=== PATIENT | female | born 1945 | race Two or more races ===

== ENCOUNTER 2018-09-28 13:39 | Inpatient (IN) | payer MEDICARE ==
[~2018-09-28] VITALS: Ht 162.6 cm; Wt 72.6 kg
[2018-09-28] MEDS ORDERED: ONDANSETRON 4 MG/2 ML VIAL IV PRN (15:15)
[2018-09-28] MEDS ORDERED: MAGNESIUM HYDROXIDE 30 ML LIQUID UDC PO PRN (15:15)
[2018-09-28] MEDS ORDERED: Z GUARD REMEDY PASTE 57 GM TUBE TOP PRN (15:15)
[2018-09-28] MEDS ORDERED: ACETAMINOPHEN 325 MG TABLET PO PRN (15:15)
[2018-09-28] MEDS ORDERED: ENOX40DI SQ (15:25)
[2018-09-28] MEDS ORDERED: MAGN400O6 PO (15:25)
[2018-09-28] MEDS ORDERED: HYDR-3326 PO ×2 (15:25)
[2018-09-28] MEDS ORDERED: PANT40TA4 PO (15:25)
[2018-09-28] MEDS ORDERED: INSU100V28 (15:25)
[2018-09-28] MEDS ORDERED: MAG355OR18 PO (15:25)
[2018-09-28] MEDS ORDERED: DEXTROSE 50% 50 ML DISP.SYRIN IV PRN (15:30)
[2018-09-28] MEDS: BLOOD SUGAR DIAGNOSTIC 1 EACH STRIP VI SCH ×2 (17:18→20:44)
--- NOTE | 2018-09-28 17:25 | NUR ---
S/P new admit from [facility] via ambulance in stretcher with 2 EMT. Alert and oriented x4 romanian speaking with little kiswahili, in stable condition. DX: Left knee ORIF, S/P left kne fracture due to fall. slight redness in dried healed scratch on the right shoulder, right arm slight weakness, negative result of fracture in x-ray. On CCHO diet, with HX of DM, hyperglycemia. MD Wheeler and MAXIM العراقي made aware. with pain management. For PT/OT/ST evaluation. not in distress. will continue monitor Addendum: 09/28/18 at 1804 by MANOLO ZUÑIGA RN RN Patient came to unit around 1445
[2018-09-28] MEDS: INSULIN REGULAR, HUMAN 300 UNIT/3 ML VIAL SQ PRN ×2 (18:42→20:47)
[2018-09-28] MEDS: HYDROCODONE/APAP 5-325MG TABLET PO PRN (19:17)
[2018-09-28 19:50] VITALS: BP 137/56
[2018-09-28] MEDS: DOCUSATE SODIUM 100 MG CAPSULE PO SCH (20:43)
--- NOTE | 2018-09-28 22:42 | NUR ---
Received pt resting in bed. AAO x3, Mosotho speaking and able to make needs known. Family at bedside. No acute distress noted. No c/o pain or discomfort. All due meds and insulin coverage given as ordered. Pt had chavez catheter removed today from [facility], pt voided x1, will continue monitoring for s/s of retention. Knee immobilizer in place. Safety measures maintained. Call light and personal belongings within reach. Will continue to monitor.
[2018-09-29 04:45] VITALS: BP 139/66
[2018-09-29] MEDS: HYDROCODONE/APAP 5-325MG TABLET PO PRN ×2 (05:52→17:09)
[2018-09-29] MEDS: PANTOPRAZOLE SODIUM 40 MG TABLET.DR PO SCH (06:00)
[2018-09-29] MEDS: BLOOD SUGAR DIAGNOSTIC 1 EACH STRIP VI SCH ×4 (06:31→20:57)
[2018-09-29 07:00] VITALS: BP 124/54
[2018-09-29 07:28] LABS: BASOPHILS % (AUTO) 0.6 % (0.0-2.0); EOSINOPHILS # (AUTO) 0.2 K/uL (0.0-0.7); EOSINOPHILS % (AUTO) 3.1 % (0.0-7.0); HEMOGLOBIN 10.5 g/dL (10.9-14.3); LYMPHOCYTES # (AUTO) 1.2 K/uL (20.0-40.0); LYMPHOCYTES % (AUTO) 17.4 % (20.5-51.5); MEAN CORPUSCULAR HEMOGLOBIN 29.3 uug (24.7-32.8); MEAN CORPUSCULAR HGB CONC 35 g/dL (32.3-35.6); MEAN CORPUSCULAR VOLUME 83.6 fL (75.5-95.3); MONOCYTES # (AUTO) 0.6 K/uL (2.0-10.0); MONOCYTES % (AUTO) 8.2 % (0.0-11.0); NEUTROPHILS # (AUTO) 4.8 K/uL (1.8-8.9); NEUTROPHILS % (AUTO) 70.7 % (38.5-71.5); PLATELET COUNT (AUTO) 197 K/uL (179-408); RED BLOOD CELL COUNT(AUTO) 3.59 MIL/uL (3.63-4.92); WHITE BLOOD COUNT (AUTO) 6.8 K/uL (3.8-11.8)
[2018-09-29] MEDS: INSULIN REGULAR, HUMAN 300 UNIT/3 ML VIAL SQ PRN ×4 (08:12→21:00)
[2018-09-29] MEDS ORDERED: HYDROCODONE/APAP 5-325MG TABLET PO SCH (09:00)
[2018-09-29] MEDS ORDERED: PANTOPRAZOLE SODIUM 40 MG TABLET.DR PO SCH (09:00)
--- NOTE | 2018-09-29 09:00 | NUR ---
Received patient, awake, alert x4. Not in any form of distress. With tolerable pain levels over left leg, refused pain medications for now. Immobilizer in place. Informed patient to maintain non-weight bearing on left lower extremity.
[2018-09-29] MEDS: ENOXAPARIN SODIUM 40 MG/0.4 ML DISP.SYRIN SQ SCH (09:38)
--- NOTE | 2018-09-29 10:26 | NUR ---
Patient showered with moderate assistance. Kept knee immobilizer in place, kept immobilizer dry and intact at all times. With tolerable pain levels. Kept on non-weight bearing status.
[2018-09-29] MEDS ORDERED: DEXTROSE 50% 50 ML DISP.SYRIN IV PRN (12:30)
[2018-09-29 16:04] VITALS: BP 148/63
[2018-09-29 20:29] VITALS: BP 134/50
[2018-09-29] MEDS: DOCUSATE SODIUM 100 MG CAPSULE PO SCH (20:54)
--- NOTE | 2018-09-29 22:01 | NUR ---
resting in bed. aaox 4 needs attended. patient had surgery on (09/26) S/P ORIF of the Left Tibia by Dr Montano. LLE dressing clean and dry.LLE with leg immobilizer intact. On pain management, denies any pain at this time. Will monitor patient. NWB LLE. Kept comfortable. Voiding well. Fall precautions maintained. Siderails up for safety.Call sal within reach.
[2018-09-30 05:20] VITALS: BP 150/64
--- NOTE | 2018-09-30 05:47 | NUR ---
slept well most of the shift. aaox4 no acute distress noted. needs attended. LLE immobilizer intact, good circulation, good pulses. denies any pain nor any discomfort. incontinent of urinex2 kept clean and dry. siderails up for safety. fall precautions maintained.
[2018-09-30] MEDS: PANTOPRAZOLE SODIUM 40 MG TABLET.DR PO SCH (06:10)
[2018-09-30] MEDS: BLOOD SUGAR DIAGNOSTIC 1 EACH STRIP VI SCH ×4 (06:33→20:26)
[2018-09-30] MEDS: INSULIN REGULAR, HUMAN 300 UNIT/3 ML VIAL SQ PRN ×4 (07:44→20:25)
[2018-09-30 08:00] VITALS: BP 145/46
[2018-09-30] MEDS: ENOXAPARIN SODIUM 40 MG/0.4 ML DISP.SYRIN SQ SCH (09:14)
[2018-09-30] MEDS: HYDROCODONE/APAP 5-325MG TABLET PO PRN (11:52)
--- NOTE | 2018-09-30 15:06 | NUR ---
Dry Transfer Man Assessment: Underwear Welter met with patient at bedside to provide support and assess for psychosocial needs. Patient is a 72 year-old female admitted to ARU s/p left knee fracture. Patient is alert and oriented x4. Patient understands some Estonian, and her , Césra, was able to translate. Patient reports she enjoys the therapy she is receiving in ARU. Patient reported that she has a strong support system with her and her daughter, Gemini. Patient expressed that she will need some more assistance when she returns home, as patient plans to return home upon discharge. Patient's mood seemed euthymic with a congruent affect. Patient seemed motivated to participate in treatment, as she asked to see the physical therapist for a second time that day. SW provided active listening and supportive counseling to the pt and her . SW collaborated with Monumental Stonemason, Ronald, and informed him of pt's wishes to return home upon discharge, likely with Home Health services. No further psychosocial needs identified at this time. SW will continue to be available to the patient throughout her stay in ARU to provide ongoing support, and will be available to provide information about caregiving resources if needed.
[2018-09-30 16:00] VITALS: BP 130/53
[2018-09-30] MEDS ORDERED: BISACODYL 10 MG SUPP.RECT RC ONE (18:15)
--- NOTE | 2018-09-30 19:45 | NUR ---
Patient received in bed, AAO x4. No acute distress or SOB was noted. Nepali speaking, but can communicate in Greenlandic. On room air. No complain of pain at this time. Safety measures maintained, Fall precaution observed, Bed in low position, brake and alarm on, side rails up x2 for safety. Continue to monitor.
[2018-09-30 19:46] VITALS: BP 145/58
[2018-09-30] MEDS: DOCUSATE SODIUM 100 MG CAPSULE PO SCH (20:22)
[2018-10-01] MEDS: HYDROCODONE/APAP 5-325MG TABLET PO PRN ×2 (04:37→20:49)
[2018-10-01 04:47] VITALS: BP 121/55
--- NOTE | 2018-10-01 05:50 | NUR ---
End of the shift report Patient was stable throughout the shift and had a good sleep last night. No sign of acute distress or SOB was noted. Complained of pain on her left leg rated 9/10. Pain medications given (Narco 5-325 mg) at 0437. V/S checked. Accucheck done, BS 200 at 2100, 3 units insulin coverage based on sliding scale. Diaper changed, keep her clean and dry. Safety measures maintained. Fall precaution observed. All needs attended promptly. Bed in low position, brake and alarm on, side rails up x2 for safety. Call light and all personal belongings within reach. Will continue to monitor and endorse to the day shift nurse accordingly.
[2018-10-01] MEDS: PANTOPRAZOLE SODIUM 40 MG TABLET.DR PO SCH (06:40)
[2018-10-01] MEDS: BLOOD SUGAR DIAGNOSTIC 1 EACH STRIP VI SCH ×4 (06:40→20:51)
[2018-10-01 07:04] LABS: BASOPHILS % (AUTO) 0.5 % (0.0-2.0); EOSINOPHILS # (AUTO) 0.2 K/uL (0.0-0.7); EOSINOPHILS % (AUTO) 3.3 % (0.0-7.0); HEMATOCRIT 30.2 % (31.2-41.9); HEMOGLOBIN 10.4 g/dL (10.9-14.3); LYMPHOCYTES # (AUTO) 1.1 K/uL (20.0-40.0); LYMPHOCYTES % (AUTO) 17.1 % (20.5-51.5); MEAN CORPUSCULAR HEMOGLOBIN 28.5 uug (24.7-32.8); MEAN CORPUSCULAR HGB CONC 34 g/dL (32.3-35.6); MEAN CORPUSCULAR VOLUME 83.1 fL (75.5-95.3); MONOCYTES # (AUTO) 0.6 K/uL (2.0-10.0); MONOCYTES % (AUTO) 8.8 % (0.0-11.0); NEUTROPHILS # (AUTO) 4.7 K/uL (1.8-8.9); NEUTROPHILS % (AUTO) 70.3 % (38.5-71.5); PLATELET COUNT (AUTO) 261 K/uL (179-408); RED BLOOD CELL COUNT(AUTO) 3.64 MIL/uL (3.63-4.92); WHITE BLOOD COUNT (AUTO) 6.7 K/uL (3.8-11.8)
[2018-10-01 07:16] LABS: ALANINE AMINOTRANSFERASE 72 U/L (14-59); ALKALINE PHOSPHATASE 125 U/L (50-136); ASPARTATE AMINOTRANSFERASE 62 U/L (15-37); CARBON DIOXIDE 30 mmol/L (21-32); CHLORIDE 104 mmol/L (98-107); CREATININE 0.6 mg/dL (0.6-1.3); GLUCOSE 147 mg/dL (74-106); POTASSIUM 3.9 mmol/L (3.5-5.1); TOTAL PROTEIN, SERUM 6.5 g/dL (6.4-8.2); UREA NITROGEN, BLOOD 17 mg/dL (7-18)
[2018-10-01 08:00] VITALS: BP 131/58
[2018-10-01] MEDS: INSULIN REGULAR, HUMAN 300 UNIT/3 ML VIAL SQ PRN ×4 (08:12→20:53)
[2018-10-01] MEDS: ENOXAPARIN SODIUM 40 MG/0.4 ML DISP.SYRIN SQ SCH (08:13)
--- NOTE | 2018-10-01 10:00 | NUR ---
Received pt in bed. A/OX4. No acute distress noted. Denies CP or SOB. All due medications given as ordered and tolerated well. On Lovenox with no s/sx of bleeding. Skin care rendered. All pt need attended and met. Kept pt. clean and dry. Safety measures maintained. Call light and all frequently used items in place. Will continue to monitor accordingly.
--- NOTE | 2018-10-01 15:26 | NUR ---
INTERDISCIPLINARY TEAM CONFERENCE
[2018-10-01 16:00] VITALS: BP 125/50
--- NOTE | 2018-10-01 18:22 | NUR ---
End of shift: All due medications administered as ordered and tolerated well. No new skin condition noted. Encouraged PO fluid intake. Skin care rendered. Kept pt. clean and dry. Participated with PT/OT and tolerated TX well. No s/sx of bleeding 2/2 use of Lovenox. Call light and all frequently used items within pt. reach. Will endorse to oncoming shift accordingly.
[2018-10-01 19:40] VITALS: BP 145/52
[2018-10-01] MEDS: DOCUSATE SODIUM 100 MG CAPSULE PO SCH (20:43)
--- NOTE | 2018-10-01 23:31 | NUR ---
Received pt resting in bed. Family at bedside. AAO x4, Welsh speaking, able to make needs known. No acute distress noted. C/o 8/10 on left leg and knee. PRN Coram given as ordered. Knee immobilizer in place. All due meds and insulin coverage given as ordered. Diaper changed. Turned and repositioned. Offloaded both heels. Safety measures maintained. Call light and personal belongings within reach. Will continue to monitor.
[2018-10-02 04:35] VITALS: BP 142/61
[2018-10-02] MEDS: BLOOD SUGAR DIAGNOSTIC 1 EACH STRIP VI SCH ×4 (06:31→20:43)
[2018-10-02] MEDS: PANTOPRAZOLE SODIUM 40 MG TABLET.DR PO SCH (06:31)
[2018-10-02] MEDS: INSULIN REGULAR, HUMAN 300 UNIT/3 ML VIAL SQ PRN ×4 (08:03→20:46)
[2018-10-02] MEDS: ENOXAPARIN SODIUM 40 MG/0.4 ML DISP.SYRIN SQ SCH (08:04)
[2018-10-02 08:19] VITALS: BP 157/50
--- NOTE | 2018-10-02 09:30 | NUR ---
Received pt in bed. A/OX4. No acute distress noted. Denies CP or SOB. All due medications given as ordered and tolerated well. On Lovenox with no s/sx of bleeding. Pt. with c/o of RT. breast pain 7-8/10 P.S aggravated when raising her RT. arm, no lumps when palpated. Heart sound regular with normal rhythm. PRN [place] 5-325 mg given and effective. MD made aware of ROBERTA, awaiting for order. Skin care rendered. All pt need attended and met. Kept pt. clean and dry. Safety measures maintained. Call light and all frequently used items in place. Will continue to monitor accordingly.
[2018-10-02] MEDS: HYDROCODONE/APAP 5-325MG TABLET PO PRN ×2 (10:10→20:48)
--- NOTE | 2018-10-02 13:00 | NUR ---
Received order CXR order from for pt. c/o RT. breast pain. Orders noted and carried out. Pt. made aware.
[2018-10-02 16:00] VITALS: BP 146/62
--- NOTE | 2018-10-02 18:18 | NUR ---
End of shift: All due medications administered as ordered and tolerated well. No new skin condition noted. Encouraged PO fluid intake. Skin care rendered. Kept pt. clean and dry. Seen by Dr. All Berrios and aware of pt. complaint of RT breast pain. Relayed CXR to MD. No new order at this time, per MD continue to monitor and administer pain medications as ordered. Call light and all frequently used items within pt. reach. Will endorse to oncoming shift accordingly.
[2018-10-02 19:45] VITALS: BP 144/53
[2018-10-02] MEDS: ATORVASTATIN 10 MG TABLET PO SCH (20:44)
[2018-10-02] MEDS: DOCUSATE SODIUM 100 MG CAPSULE PO SCH (20:44)
--- NOTE | 2018-10-02 21:00 | NUR ---
Received pt resting in bed. AAO x4. Uruguayan speaking, able to make needs known. Family at bedside. No acute distress noted. C/o 8/10 pain on right upper breast and left knee. Jefferson PRN given. All due meds and insulin coverage given as ordered. Knee immobilizer in place. Safety measures maintained. Call light and personal belongings within reach. Will continue to monitor.
[2018-10-03 04:50] VITALS: BP 144/51
[2018-10-03] MEDS: PANTOPRAZOLE SODIUM 40 MG TABLET.DR PO SCH (06:26)
[2018-10-03] MEDS: BLOOD SUGAR DIAGNOSTIC 1 EACH STRIP VI SCH ×4 (06:33→20:49)
--- NOTE | 2018-10-03 06:46 | NUR ---
No stool sample collected this shift. No BM. Will endorse accordingly to oncoming shift.
[2018-10-03] MEDS: GLIMEPIRIDE 2 MG TABLET PO SCH (08:12)
[2018-10-03] MEDS: INSULIN REGULAR, HUMAN 300 UNIT/3 ML VIAL SQ PRN ×3 (08:19→20:52)
--- NOTE | 2018-10-03 12:25 | NUR ---
SBAR report received, Pt assessed. NAD. No SOB, dull pain described to upper right deltoid/shoulder, therapist reports slight arm extension reduction observed. MD notified, continue to monitor at this time. Ice pack applied. Pt complaint with all routine morning medication administration, including insulin coverage. BS 142 prior to lunch. Insulin coverage of 2 units double checked by both nurses, issue scanning insulin addressed by Pharmacist, permission to administer per safety protocol of Pt confirmed. Pharmacist will continue to investigate issue. Will document accordingly when able. VSS. Left knee immobilizer in place. Pt assisted to transfer to bedside commode safely for voiding and returned. Pt Bed in locked and lowest position, linens changed. Personal items and call light placed within reach. Pt sitting up in chair for lunch. Will continue to monitor.
[2018-10-03] MEDS: HYDROCODONE/APAP 5-325MG TABLET PO PRN (15:26)
[2018-10-03 16:59] VITALS: BP 138/44
[2018-10-03] MEDS ORDERED: RIVAROXABAN 15 MG TABLET PO SCH (18:00)
[2018-10-03 19:45] VITALS: BP 132/29
--- NOTE | 2018-10-03 19:50 | NUR ---
Patient received in bed, AAO x4. No acute distress or SOB was noted. Polish speaking, but can communicate in Albanian. On room air. Family at the bedside. No complain of pain at this time. Safety measures maintained, Fall precaution observed, Bed in low position, brake and alarm on, side rails up x2 for safety. Continue to monitor.
[2018-10-03] MEDS: ATORVASTATIN 10 MG TABLET PO SCH (20:50)
[2018-10-03] MEDS: DOCUSATE SODIUM 100 MG CAPSULE PO SCH (20:50)
[2018-10-04] MEDS: HYDROCODONE/APAP 5-325MG TABLET PO PRN ×2 (03:17→08:32)
[2018-10-04 03:57] LABS: *OCCULT BLOOD STOOL NEGATIVE (NEGATIVE)
[2018-10-04] MEDS: PANTOPRAZOLE SODIUM 40 MG TABLET.DR PO SCH (06:15)
[2018-10-04 06:17] VITALS: BP 125/54
--- NOTE | 2018-10-04 06:46 | NUR ---
End of the shift report Patient was stable throughout the shift and had a good sleep last night. No sign of acute distress or SOB was noted. Complained of pain on her right shoulder rated 8/10. Pain medications given (Narco 5-325 mg) at 0337. V/S checked. Accucheck done, BS 138 at 2100, 2 units insulin coverage based on sliding scale. Accucheck DC. Diaper changed, keep her clean and dry. Stool sample collected, sent to the lab, result came back negative. Safety measures maintained. Fall precaution observed. All needs attended promptly. Bed in low position, brake and alarm on, side rails up x2 for safety. Call light and all personal belongings within reach. Will continue to monitor and endorse to the day shift nurse accordingly.
[2018-10-04 08:02] VITALS: BP 140/50
[2018-10-04] MEDS: GLIMEPIRIDE 2 MG TABLET PO SCH (08:31)
--- NOTE | 2018-10-04 13:21 | NUR ---
INTERDISCIPLINARY TEAM CONFERENCE
[2018-10-04] MEDS: IBUPROFEN 200 MG TABLET PO SCH (17:09)
[2018-10-04] MEDS: RIVAROXABAN 10 MG TABLET PO SCH (17:10)
--- NOTE | 2018-10-04 19:04 | NUR ---
Patient still complaining of right shoulder pain and difficulty moving her right hand. MD Carrizales aware ordered CT cervical and thoracic scan. notified with the result. will continue monitor
--- NOTE | 2018-10-04 19:44 | NUR ---
Patient received in bed, AAO x4. No acute distress or SOB was noted. Faroese speaking, but can communicate in Setswana. On room air. Family at the bedside. No complain of pain at this time. V/S checked. Safety measures maintained, Fall precaution observed, Bed in low position, brake and alarm on, side rails up x2 for safety. Continue to monitor.
[2018-10-04 19:45] VITALS: BP 132/51
[2018-10-04] MEDS ORDERED: Z GUARD REMEDY PASTE 57 GM TUBE TOP PRN (20:30)
[2018-10-04] MEDS: DOCUSATE SODIUM 100 MG CAPSULE PO SCH (20:54)
[2018-10-04] MEDS: ATORVASTATIN 10 MG TABLET PO SCH (20:54)
[2018-10-05 06:11] VITALS: BP 132/58
[2018-10-05] MEDS: PANTOPRAZOLE SODIUM 40 MG TABLET.DR PO SCH (06:21)
--- NOTE | 2018-10-05 06:49 | NUR ---
End of the shift report Patient was stable throughout the shift and had a good sleep last night. No sign of acute distress or SOB was noted. Complained of pain on her right shoulder when moving her shoulder. V/S checked. Diaper changed, keep her clean and dry. Stool sample collected, sent to the lab, result came back negative. Urine sample collected and sent to the lab. Safety measures maintained. Fall precaution observed. All needs attended promptly. Bed in low position, brake and alarm on, side rails up x2 for safety. Call light and all personal belongings within reach. Will continue to monitor and endorse to the day shift nurse accordingly.
[2018-10-05 07:22] LABS: *BILIRUBIN,URIN NEGATIVE (NEGATIVE); *BLOOD, URINE Trace-intact (NEGATIVE); *CLARITY,URINE CLOUDY (CLEAR); *COLOR,URINE YELLOW (YELLOW); *KETONES,URINE NEGATIVE (NEGATIVE); *UROBILINOGEN,URINE 0.2 E.U./dl (NORMAL); LEUKOCYTE ESTERASE ,URINE 2+ (NEGATIVE); NITRITE, URINE NEGATIVE (NEGATIVE); PH,URINE 5.5 (5.0-8.0); UGLUCOSE NEGATIVE (NEGATIVE)
[2018-10-05 07:33] LABS: BACTERIA,URINE MANY /HPF (NONE SEEN); RBC,URINE 0-3 /HPF (0-3); SQUAMOUS EPITHELIAL CELL,UR FEW /HPF (NONE SEEN); WBC,URINE 50-80 /HPF (0-3)
[2018-10-05] MEDS: IBUPROFEN 200 MG TABLET PO SCH ×3 (08:32→16:45)
[2018-10-05] MEDS: GLIMEPIRIDE 2 MG TABLET PO SCH (08:32)
[2018-10-05 09:28] VITALS: BP 142/62
[2018-10-05] MEDS: CEphaleXIN 500 MG CAPSULE PO SCH ×2 (13:19→21:04)
[2018-10-05] MEDS: RIVAROXABAN 10 MG TABLET PO SCH (16:47)
[2018-10-05 19:43] VITALS: BP 127/51
[2018-10-05] MEDS: DOCUSATE SODIUM 100 MG CAPSULE PO SCH (20:10)
[2018-10-05] MEDS: ATORVASTATIN 10 MG TABLET PO SCH (20:10)
--- NOTE | 2018-10-05 20:33 | NUR ---
Received pt resting in bed. AAO x4. Venezuelan speaking, able to make needs known. Family at bedside. No acute distress noted. No c/o pain or discomfort. Knee immobilizer in place. Both heels offloaded. Turned and repositioned. Safety measures maintained. Call light and personal belongings within reach. Will continue to monitor.
[2018-10-06 04:40] VITALS: BP 134/59
[2018-10-06] MEDS: PANTOPRAZOLE SODIUM 40 MG TABLET.DR PO SCH (06:16)
[2018-10-06] MEDS: CEphaleXIN 500 MG CAPSULE PO SCH ×3 (06:16→21:09)
--- NOTE | 2018-10-06 06:45 | NUR ---
Pt slept comfortably at night. All needs attended to promptly. Knee immobilizer kept in place. Offloaded both heels. Turned and repositioned. All due meds given as ordered. Will endorse to oncoming shift. Continue to monitor.
[2018-10-06] MEDS: GLIMEPIRIDE 2 MG TABLET PO SCH (08:17)
[2018-10-06] MEDS: IBUPROFEN 200 MG TABLET PO SCH ×3 (08:17→17:08)
[2018-10-06 08:36] VITALS: BP 143/57
[2018-10-06] MEDS: HYDROCODONE/APAP 5-325MG TABLET PO PRN ×2 (11:13→20:08)
[2018-10-06 16:00] VITALS: BP 148/56
[2018-10-06] MEDS: RIVAROXABAN 10 MG TABLET PO SCH (17:09)
--- NOTE | 2018-10-06 19:11 | NUR ---
End of shift: All due medications administered as ordered and tolerated well. No new skin condition noted. Encouraged PO fluid intake. Skin care rendered. Kept pt. clean and dry. Lt. knee immobilizer in place. Call light and all frequently used items within pt. reach. Will endorse to oncoming shift accordingly.
[2018-10-06] MEDS: DOCUSATE SODIUM 100 MG CAPSULE PO SCH (20:06)
[2018-10-06] MEDS: ATORVASTATIN 10 MG TABLET PO SCH (20:07)
[2018-10-06 20:21] VITALS: BP 109/65
--- NOTE | 2018-10-06 21:02 | NUR ---
Received pt sleeping comfortably in bed. AAO x4. Togolese speaking, able to make needs known. No acute distress noted. C/o 7/10 pain on right shoulder and left knee. PRN Ralph and all due meds given as ordered. Knee immobilizer in place. Dr. Carrizales seen pt and ordered for right shoulder xray for tomorrow 10/07/18 at 0800. Safety measures maintained. Call light and personal belongings within reach. Will continue to monitor.
[2018-10-07 04:10] VITALS: BP 141/55
[2018-10-07] MEDS: CEphaleXIN 500 MG CAPSULE PO SCH ×3 (05:32→21:12)
[2018-10-07] MEDS: PANTOPRAZOLE SODIUM 40 MG TABLET.DR PO SCH (06:06)
[2018-10-07 07:30] VITALS: BP_SYST 143; BP_SYST 155; BP_DIAS 55; BP_DIAS 61
[2018-10-07] MEDS: GLIMEPIRIDE 2 MG TABLET PO SCH (08:26)
[2018-10-07] MEDS: IBUPROFEN 200 MG TABLET PO SCH ×3 (08:26→17:03)
--- NOTE | 2018-10-07 10:24 | NUR ---
Received pt in bed. A/OX4. No acute distress noted. Denies CP or SOB. RA and tolerating well. All due medications given as ordered and tolerated well. Skin care rendered. All pt need attended and met. Kept pt. clean and dry. Safety measures maintained. Call light and all frequently used items in place. Will continue to monitor accordingly.
[2018-10-07] MEDS: HYDROCODONE/APAP 5-325MG TABLET PO PRN (15:56)
[2018-10-07 17:01] VITALS: BP 133/56
[2018-10-07] MEDS: RIVAROXABAN 10 MG TABLET PO SCH (17:05)
--- NOTE | 2018-10-07 17:48 | NUR ---
End of shift: All due medications administered as ordered and tolerated well. No new skin condition noted. Encouraged PO fluid intake. Skin care rendered. Kept pt. clean and dry. Lt. knee dressing changed today per pt. request, pt. tolerated procedure well. Surgical incision noted with multiple claudia and minimal redness, no drain or swelling. LT knee immobilizer in place. Call light and all frequently used items within pt. reach. Will endorse to oncoming shift accordingly.
[2018-10-07 19:45] VITALS: BP 118/44
--- NOTE | 2018-10-07 19:45 | NUR ---
Patient received in bed, AAO x4. No acute distress or SOB was noted. Indonesian speaking, but can communicate in Maltese. On room air. Complain of pain on the right breast. V/S checked. Safety measures maintained, Fall precaution observed, Bed in low position, brake and alarm on, side rails up x2 for safety. Continue to monitor.
[2018-10-07] MEDS: ATORVASTATIN 10 MG TABLET PO SCH (21:12)
[2018-10-07] MEDS: DOCUSATE SODIUM 100 MG CAPSULE PO SCH (21:12)
[2018-10-08 04:59] VITALS: BP 145/47
[2018-10-08] MEDS: CEphaleXIN 500 MG CAPSULE PO SCH ×3 (06:09→21:03)
[2018-10-08] MEDS: PANTOPRAZOLE SODIUM 40 MG TABLET.DR PO SCH (06:09)
--- NOTE | 2018-10-08 06:56 | NUR ---
End of the shift report Patient was stable throughout the shift and had a good sleep last night. No sign of acute distress or SOB was noted. Complained of pain on her right shoulder and right breast when moving her shoulder. V/S checked. Assisted her to the bathroom as needed, Diaper changed, keep her clean and dry. Safety measures maintained. Fall precaution observed. All needs attended promptly. Bed in low position, brake and alarm on, side rails up x2 for safety. Call light and all personal belongings within reach. Will continue to monitor and endorse to the day shift nurse accordingly.
[2018-10-08] MEDS: GLIMEPIRIDE 2 MG TABLET PO SCH (08:38)
[2018-10-08] MEDS: IBUPROFEN 200 MG TABLET PO SCH ×3 (08:38→16:46)
[2018-10-08 09:04] LABS: BASOPHILS % (AUTO) 0.6 % (0.0-2.0); EOSINOPHILS # (AUTO) 0.2 K/uL (0.0-0.7); EOSINOPHILS % (AUTO) 3.7 % (0.0-7.0); HEMATOCRIT 33.2 % (31.2-41.9); HEMOGLOBIN 11.1 g/dL (10.9-14.3); LYMPHOCYTES # (AUTO) 1.1 K/uL (20.0-40.0); LYMPHOCYTES % (AUTO) 16.6 % (20.5-51.5); MEAN CORPUSCULAR HEMOGLOBIN 28.3 uug (24.7-32.8); MEAN CORPUSCULAR HGB CONC 34 g/dL (32.3-35.6); MEAN CORPUSCULAR VOLUME 84.3 fL (75.5-95.3); MONOCYTES # (AUTO) 0.4 K/uL (2.0-10.0); MONOCYTES % (AUTO) 5.8 % (0.0-11.0); NEUTROPHILS # (AUTO) 4.7 K/uL (1.8-8.9); NEUTROPHILS % (AUTO) 73.3 % (38.5-71.5); PLATELET COUNT (AUTO) 313 K/uL (179-408); RED BLOOD CELL COUNT(AUTO) 3.94 MIL/uL (3.63-4.92); WHITE BLOOD COUNT (AUTO) 6.4 K/uL (3.8-11.8)
[2018-10-08 09:17] LABS: ALANINE AMINOTRANSFERASE 41 U/L (14-59); ALKALINE PHOSPHATASE 137 U/L (50-136); ASPARTATE AMINOTRANSFERASE 25 U/L (15-37); BILIRUBIN,TOTAL 0.7 mg/dL (0.2-1.0); CARBON DIOXIDE 28 mmol/L (21-32); CHLORIDE 104 mmol/L (98-107); CREATININE 0.6 mg/dL (0.6-1.3); GLUCOSE 183 mg/dL (74-106); MAGNESIUM 2.1 mg/dL (1.8-2.4); PHOSPHOROUS 3.4 mg/dL (2.5-4.9); POTASSIUM 3.9 mmol/L (3.5-5.1); TOTAL PROTEIN, SERUM 6.8 g/dL (6.4-8.2); UREA NITROGEN, BLOOD 16 mg/dL (7-18)
[2018-10-08 10:10] VITALS: BP 149/62
[2018-10-08 10:47] VITALS: BP 149/62
--- NOTE | 2018-10-08 14:01 | NUR ---
Patient complaint of right breast pain. Breast exam done with small lump on inner right breast noted. MD Liu noted. ordered breast ultrasound. not in distress. Continue Ibuprofen for pain management with good effect. will continue monitor
[2018-10-08 16:06] VITALS: BP 118/45
[2018-10-08] MEDS: RIVAROXABAN 10 MG TABLET PO SCH (17:14)
--- NOTE | 2018-10-08 17:55 | NUR ---
Breast ultrasound done, awaiting result
[2018-10-08 19:50] VITALS: BP 150/57
[2018-10-08] MEDS: DOCUSATE SODIUM 100 MG CAPSULE PO SCH (20:53)
[2018-10-08] MEDS: ATORVASTATIN 10 MG TABLET PO SCH (20:53)
--- NOTE | 2018-10-08 21:00 | NUR ---
Patient left knee incision site wrapped with joe bandage and knee immobilizer in place. Per patient they already changed and opened dressing yesterday. Picture also taken on 10/07/18, so refused for dressing to be opened for pictures. Explained risks and benefits, but still refused. All needs attended to promptly. Call light within reach. Will continue to monitor.
[2018-10-09 04:00] VITALS: BP 133/52
[2018-10-09] MEDS: CEphaleXIN 500 MG CAPSULE PO SCH ×3 (06:26→21:39)
[2018-10-09] MEDS: PANTOPRAZOLE SODIUM 40 MG TABLET.DR PO SCH (06:26)
[2018-10-09] MEDS: IBUPROFEN 200 MG TABLET PO SCH ×3 (08:53→17:03)
[2018-10-09] MEDS: GLIMEPIRIDE 2 MG TABLET PO SCH (08:53)
[2018-10-09 09:00] VITALS: BP 136/54
--- NOTE | 2018-10-09 09:10 | NUR ---
Received patient, awake, alert x4. Not in any form of distress. Kept knee immobilizer in place. Patient said her thoracic pain and shoulder pain was resolved. With pain over left knee area rated as 6/10. Scheduled Motrin given. No chest pains, SOB or dizziness noted.
--- NOTE | 2018-10-09 10:23 | NUR ---
Up with physical therapy, tolerating well. Maintained non-weight bearing on left lower extremity. Tolerable pain levels, not requiring pain medications.
[2018-10-09 16:00] VITALS: BP 128/48
[2018-10-09] MEDS: RIVAROXABAN 10 MG TABLET PO SCH (17:03)
[2018-10-09 19:39] VITALS: BP 129/52
--- NOTE | 2018-10-09 19:45 | NUR ---
Received pt in bed, appearing to be asleep but easily arousable to verbal stimuli and light touch. No acute distress noted. Verbally responsive and able to make needs known. Primarily Yoruba speaking but able to communicate basic needs in [place]. Denies pain or discomfort. No facial indications of pain noted at this time. All safety measures and fall precautions maintained. Call light and all personal belongings within reach. Will continue to monitor.
[2018-10-09] MEDS: DOCUSATE SODIUM 100 MG CAPSULE PO SCH (20:25)
[2018-10-09] MEDS: ATORVASTATIN 10 MG TABLET PO SCH (20:25)
[2018-10-09] MEDS: HYDROCODONE/APAP 5-325MG TABLET PO PRN (20:28)
[2018-10-10 06:10] VITALS: BP 127/57
[2018-10-10] MEDS: PANTOPRAZOLE SODIUM 40 MG TABLET.DR PO SCH (06:24)
[2018-10-10] MEDS: CEphaleXIN 500 MG CAPSULE PO SCH ×3 (06:24→21:06)
[2018-10-10] MEDS: GLIMEPIRIDE 2 MG TABLET PO SCH (08:21)
[2018-10-10] MEDS: IBUPROFEN 200 MG TABLET PO SCH ×3 (08:21→17:11)
--- NOTE | 2018-10-10 08:30 | NUR ---
Received patient, awake, alert x4. With pain over left knee rated as 8/10. Routine Motrin given. Not in any form of distress, no SOB or chest pains noted. No dizziness or S/S of hypoglycemia. Morning care done, vika-care and oral care done. Will continue to monitor.
[2018-10-10 09:00] VITALS: BP 123/41
--- NOTE | 2018-10-10 13:33 | NUR ---
Up with physical therapy, tolerating well. With tolerable pain over right shoulder and left knee, rated as 3/10. Routine Motrin given. Kept non-weight bearing on left lower extremities.
[2018-10-10 15:00] VITALS: BP 125/53
[2018-10-10] MEDS: RIVAROXABAN 10 MG TABLET PO SCH (17:11)
[2018-10-10 20:06] VITALS: BP 133/50
[2018-10-10] MEDS: DOCUSATE SODIUM 100 MG CAPSULE PO SCH (20:42)
[2018-10-10] MEDS: ATORVASTATIN 10 MG TABLET PO SCH (20:42)
[2018-10-11 04:00] VITALS: BP 143/53
[2018-10-11] MEDS: PANTOPRAZOLE SODIUM 40 MG TABLET.DR PO SCH (06:15)
[2018-10-11] MEDS: GLIMEPIRIDE 2 MG TABLET PO SCH (08:23)
[2018-10-11] MEDS: IBUPROFEN 200 MG TABLET PO SCH ×3 (08:23→17:47)
--- NOTE | 2018-10-11 08:30 | NUR ---
Received patient, awake, alert x4. Not in any form of distress. With pain over left knee rated as 6/10. Maintained non-weight bearing on left lower extremity. Will continue to monitor.
[2018-10-11 09:00] VITALS: BP 131/60
--- NOTE | 2018-10-11 11:21 | NUR ---
Up with occupational therapy tolerating well. Kept knee immobilizer at all times. Ambulates with front wheel walker with assist. Tolerable pain levels. Refuses pain medications at the moment.
--- NOTE | 2018-10-11 12:40 | NUR ---
INTERDISCIPLINARY TEAM CONFERENCE
--- NOTE | 2018-10-11 14:44 | NUR ---
Called and verified with Dr. Montano's clinic about weight bearing status of patient, nurse said until patient would have been seen by to still keep patient on non-weight bearing for left lower extremities.
[2018-10-11] MEDS: HYDROCODONE/APAP 5-325MG TABLET PO PRN (15:16)
[2018-10-11] MEDS: RIVAROXABAN 10 MG TABLET PO SCH (17:46)
[2018-10-11 20:02] VITALS: BP 121/89
[2018-10-11] MEDS: DOCUSATE SODIUM 100 MG CAPSULE PO SCH (20:20)
[2018-10-11] MEDS: ATORVASTATIN 10 MG TABLET PO SCH (20:20)
--- NOTE | 2018-10-11 21:21 | NUR ---
Received pt in bed, AAO x 4 watching television and talking on the phone. No acute distress noted. Denies pain or discomfort at this time. Verbally responsive and able to make needs known. All due medications given as ordered, tolerated well. All safety measures and fall precautions maintained. Call light and all personal belongings within reach. Will continue to monitor.
[2018-10-12] MEDS: HYDROCODONE/APAP 5-325MG TABLET PO PRN (05:49)
[2018-10-12 05:59] VITALS: BP 131/62
[2018-10-12] MEDS: PANTOPRAZOLE SODIUM 40 MG TABLET.DR PO SCH (06:00)
[2018-10-12] MEDS: GLIMEPIRIDE 2 MG TABLET PO SCH (08:45)
[2018-10-12] MEDS: IBUPROFEN 200 MG TABLET PO SCH ×3 (08:45→17:37)
[2018-10-12] MEDS: RIVAROXABAN 10 MG TABLET PO SCH (17:37)
[2018-10-12 19:44] VITALS: BP 120/55
[2018-10-12] MEDS: ATORVASTATIN 10 MG TABLET PO SCH (20:05)
[2018-10-12] MEDS: DOCUSATE SODIUM 100 MG CAPSULE PO SCH (20:05)
--- NOTE | 2018-10-12 23:16 | NUR ---
Received pt in bed, appearing to be asleep but easily arousable to verbal stimuli and light touch. No acute distress noted. Verbally responsive and able to make needs known. Denies pain or discomfort at this time. All due medications given as ordered, tolerated well. All safety measures and fall precautions maintained. Call light and all personal belongings within reach. Will continue to monitor.
[2018-10-13] MEDS: HYDROCODONE/APAP 5-325MG TABLET PO PRN ×2 (00:14→06:17)
--- NOTE | 2018-10-13 00:51 | NUR ---
Assisted patient to restroom with RN TRANSFER. Door closed nearly shut for privacy. Instructed patient to use call light/string when completed with restroom. RN & RN TRANSFER standing outside bathroom, in patient room, when suddenly a loud noise was heard and patient yelled. RN and RN TRANSFER rushed into bathroom, found patient on the floor laying against the wall. When asked what happened, patient said she fell but refusing to answer anymore questions. Denies hitting her head on the wall but C/O pain on right hip 8/10 pain scale. Assisted into wheelchair and transferred onto bed. Upon assessment, no noted skin issues. Vital signs taken and WNL. PRN pain medication administered, tolerated well. Currently in bed. Noted with active range of motion on right leg. RUTH Luis notified of patient fall with new orders of STAT right hip xray. Iron Plastic Bullet Maker aware of fall. Call light within reach. Will continue to monitor.
--- NOTE | 2018-10-13 05:50 | NUR ---
Attempt made to contact daughterGemini (Next of Kin), via number provided in chart with no response.
[2018-10-13] MEDS: PANTOPRAZOLE SODIUM 40 MG TABLET.DR PO SCH (06:04)
--- NOTE | 2018-10-13 06:05 | NUR ---
Patient slept quietly throughout the rest of the shift. No further complaints of pain. Safety maintained. Call light within reach. Will continue to monitor. Will endorse accordingly to AM shift.
[2018-10-13 06:20] VITALS: BP 126/58
[2018-10-13] MEDS: IBUPROFEN 200 MG TABLET PO SCH ×2 (09:10→13:23)
[2018-10-13] MEDS: GLIMEPIRIDE 2 MG TABLET PO SCH (09:10)
--- NOTE | 2018-10-13 14:58 | NUR ---
D/C VIA AMBULANCE. SKIN PICS TAKEN. ORDER ON CHART. D/C INSTRUCTIONS GIVEN TO DAUGHTER VERBALIZE UNDERSTANDING. BELONGINGS LIST RECONCILED.
== END 2018-10-13 14:50 | disposition home health service (06) | DRG 560 ==
PROVIDERS: ADMIT Physical Medicine & Rehabilitation Pain Medicine; ATTEND Physical Medicine & Rehabilitation Pain Medicine
DX: S82.142D Displaced bicondylar fracture of left tibia, subsequent encounter for closed fracture with routine healing (principal); D68.59 Other primary thrombophilia; E44.0 Moderate protein-calorie malnutrition; N39.0 Urinary tract infection, site not specified; Z47.89 Encounter for other orthopedic aftercare; E11.9 Type 2 diabetes mellitus without complications; S82.452D Displaced comminuted fracture of shaft of left fibula, subsequent encounter for closed fracture with routine healing; W01.0XXD Fall on same level from slipping, tripping and stumbling without subsequent striking against object, subsequent encounter; D64.9 Anemia, unspecified; E11.65 Type 2 diabetes mellitus with hyperglycemia; E66.9 Obesity, unspecified; Z68.27 Body mass index [BMI] 27.0-27.9, adult; E78.5 Hyperlipidemia, unspecified; M77.8 Other enthesopathies, not elsewhere classified; M47.9 Spondylosis, unspecified; M48.02 Spinal stenosis, cervical region; M54.10 Radiculopathy, site unspecified; N64.4 Mastodynia; N63.10 Unspecified lump in the right breast, unspecified quadrant; M19.90 Unspecified osteoarthritis, unspecified site
CPT/HCPCS: 36415; 71046; 72125; 73030; 73501; 76642-TC; 82652; 83735; 84100; 85025; 92523; 92526; 92610; 97110; 97112; 97116; 97165; 97530; 97535; A4663; J1650; J1815